=== PATIENT | male | born 1950 | race Hispanic/Latino ===

== ENCOUNTER 2019-06-13 08:22 | Day surgery (SDC) | payer OTHER ==
[~2019-06-13 08:22] MED LIST: NACL 0.9% 1000 ML 1,000 ML IV SCH
[2019-06-13] MEDS ORDERED: DIPRIVAN 10 MG/ML IV ONE (09:58)
--- NOTE | 2019-06-13 09:59 | Anesthesia Day of Surgery ---
Anesthesia Day of Surgery - Day of Surgery Patient Examined: Yes Patient H&P Reviewed: Yes Patient is NPO: Yes Beta Blockers: Yes
--- NOTE | 2019-06-13 10:00 | Anesthesia Consultation ---
Anesthesia Consult and Med Hx Date of service: 06/13/19 - Airway Anesthetic Teeth Evaluation: Good ROM Head & Neck: Adequate Mental/Hyoid Distance: Adequate Mallampati Class: Class III Intubation Access Assessment: Good - Pulmonary Exam CTA: Yes - Cardiac Exam Cardiac Exam: RRR - Pre-Operative Health Status ASA Pre-Surgery Classification: ASA3 Proposed Anesthetic Plan: MAC - Pulmonary Hx Smoking: No - Cardiovascular System Hx Hypertension: Yes - Endocrine Hx Insulin Dependent Diabetes: Yes - Other Systems Hx Obesity: Yes
--- NOTE | 2019-06-13 10:27 | Procedure Note ---
Date of procedure: 06/13/19 Pre-op diagnosis: Colon Polyp Screenin Post-op diagnosis: other (Recto-Sigmoid Polyps/ Minor,Internal Hemorrhoid (not significant enough for banding)) Procedure: Colonoscopy with cold biopsy Anesthesia: MAC Surgeon: LYNNETTE MESSER Estimated blood loss: minimal Pathology: list Specimen disposition: to lab Condition: stable Disposition: same day (Use OTC Hemorrhoidal medication. Avoid aspirin and NSAID for 5 days. Follow up in 1 to 2 weeks ([phone]).)
--- NOTE | 2019-06-13 10:37 | Operative Report ---
PROCEDURE: Colonoscopy with biopsy. INDICATIONS: A 68-year-old white male with an underlying history of diabetes and hypertension, who has a prior history of colon polyp. Colonoscopy was done to assess for any recurrence of any polyps. DESCRIPTION OF PROCEDURE: Procedure was done after getting informed consent with MAC anesthesia. Initial rectal exam was unremarkable. The patient had complained also of some hemorrhoids. The scope was retroflexed and the patient had minor internal hemorrhoid. It was not significant enough for banding. The instrument was then passed through the rectum onto the cecum, which was identified by ileocecal valve and appendiceal orifice. Visualization was fair to good. Cecum, ascending colon, transverse colon, descending colon and most of the sigmoid showed normal mucosa in the rectum and the rectosigmoid area, there were a total of 3 small polyps noted, possibly hyperplastic that were removed by cold biopsy and again the rectum showed minor internal hemorrhoids not significant enough for banding. There was minimal bleeding from the biopsy sites. No complications associated with the procedure. The patient will be asked to take some hemorrhoidal medication. Resume previous medication. Avoid aspirin and aspirin-related products for the next few days and follow up in the office in 1-2 weeks' time. Procedure was done in the GI lab in the presence of RN, Flaquita Moses, and with the GI lab team and with the assistance of anesthesia. The technology applications engineer was [employer]. JOB# [id number] [facility]
[2019-06-13] MEDS ORDERED: XYLOCAINE MPF 2% ONE (11:00)
[2019-06-13 11:04] VITALS: BP 132/73
--- NOTE | 2019-06-13 11:31 | Procedure Note ---
Date of procedure: 06/13/19 Pre-op diagnosis: Dysphagita/ Colon Polyp Screening Post-op diagnosis: other (Abnormal, Proximal Stomach Mucosa (r/o early neoplasm)/Mild,Benign Esophageal Stenosis/R/O Eosinophilic Esophagitis/Gastritis/Solitary,Small Ascending Colon Polyp/Moderate, Internal Hemorrhoid) Procedure: EGD with Biopsy and Colonoscopy and Biopsy Anesthesia: [facility] [place] Surgeon: LYNNETTE MESSER Estimated blood loss: minimal Pathology: list Specimen disposition: to lab Condition: stable Disposition: same day (Treat with PPI. Avoid aspirin and NSAID for 5 days. follow up in 1 to 2 weeks ([phone]). Resume Home medication.)
== END 2019-06-13 08:23 | disposition home or self-care (01) ==
LOC: GIO 08:22
DX: Z12.11 Encounter for screening for malignant neoplasm of colon (principal); K62.1 Rectal polyp; K64.8 Other hemorrhoids; I10 Essential (primary) hypertension; E11.9 Type 2 diabetes mellitus without complications; E66.9 Obesity, unspecified; M19.90 Unspecified osteoarthritis, unspecified site; Z68.37 Body mass index [BMI] 37.0-37.9, adult; Z98.890 Other specified postprocedural states; Z87.891 Personal history of nicotine dependence; Z79.899 Other long term (current) drug therapy; Z98.49 Cataract extraction status, unspecified eye; Z88.8 Allergy status to other drugs, medicaments and biological substances
CPT/HCPCS: 45380; 82962; 88305; J2704; J7030